=== PATIENT | male | born 1965 | race Caucasian/White ===

== ENCOUNTER 2019-01-04 21:30 | Emergency (ER) | payer BC ==
[2019-01-04] MEDS ORDERED: EPINEPHrine 1MG/10ML SYRINGE 1.5IN ONE (21:31)
[2019-01-04] MEDS ORDERED: METAL LOCK LOOP XX ONE (22:07)
[2019-01-05] MEDS ORDERED: METAL LOCK LOOP XX ONE (03:10)
== END 2019-01-04 21:32 | disposition expired ==
LOC: M ED 21:30
DX: I46.8 Cardiac arrest due to other underlying condition (principal); S02.91XB Unspecified fracture of skull, initial encounter for open fracture; S22.43XA Multiple fractures of ribs, bilateral, initial encounter for closed fracture; S52.92XA Unspecified fracture of left forearm, initial encounter for closed fracture; S82.201A Unspecified fracture of shaft of right tibia, initial encounter for closed fracture; S82.401A Unspecified fracture of shaft of right fibula, initial encounter for closed fracture; S27.0XXA Traumatic pneumothorax, initial encounter; V03.10XA Pedestrian on foot injured in collision with car, pick-up truck or van in traffic accident, initial encounter; Y92.410 Unspecified street and highway as the place of occurrence of the external cause; Y93.89 Activity, other specified; Y99.9 Unspecified external cause status

== ENCOUNTER → 2019-01-06 | Outpatient (REF) ==
--- NOTE | 2019-01-07 04:50 | REP ---
Clinical: Autopsy Technique: Single portable view of the pelvis. Findings: Left inferior pubic ramus fracture suspected. Electronically Signed by Trerance Richmond MD 01/07/2019 04:42 A
--- NOTE | 2019-01-07 04:51 | REP ---
Clinical: Autopsy Technique: Portable AP and lateral cervical spine. Findings: Alignment is maintained. No obvious acute fracture / compression injury or subluxation is appreciated. Electronically Signed by Terrance Richmond MD 01/07/2019 04:43 A
--- NOTE | 2019-01-07 05:11 | REP ---
Clinical: Autopsy Technique: Portable AP view of the chest. Findings: Bilateral clavicle fractures, left scapular fracture, and multiple left rib fractures identified. Impression: Multiple fractures noted. Electronically Signed by Terrance Richmond MD 01/07/2019 05:03 A
--- NOTE | 2019-01-07 05:12 | REP ---
Clinical: Autopsy Technique: AP and lateral portable skull radiographs. Findings: Innumerable comminuted fractures of the skull appreciated. Associated pneumocephalus noted. Facial fractures cannot be evaluated. Impression: Comminuted fractures of the skull. Electronically Signed by Terrance Richmond MD 01/07/2019 05:04 A
== END ==
LOC: M LAB 08:55